=== PATIENT | female | born 1975 | race Caucasian/White ===

== ENCOUNTER 2023-07-07 21:04 | Inpatient (IN) | payer MEDICAID ==
[~2023-07-07] VITALS: Ht 162.6 cm; Wt 102.7 kg
[2023-07-07] MEDS ORDERED: ZOLPIDEM TARTRATE 10 MG TABLET PO PRN (22:30)
[2023-07-07 23:59] VITALS: BP 139/72; PULSE 70; RESP 17; TEMP 97.8; O2SAT 97
[2023-07-08 03:40] VITALS: BP 138/74; RESP 18; O2SAT 97
[2023-07-08] MEDS: LORazepam 2 MG TABLET PO PRN ×3 (03:43→20:24)
[2023-07-08] MEDS: HALOPERIDOL 5 MG TABLET PO PRN ×3 (03:43→20:24)
[2023-07-08] MEDS ORDERED: GLUCAGON,HUMAN RECOMBINANT 1 MG VIAL IM PRN (06:45)
[2023-07-08 06:46] LABS: GLUCOMETER DEV NAME(LOC) BV3S.; GLUCOSE,POINT OF CARE 157 MG/DL (70-110)
[2023-07-08] MEDS: INSULIN LISPRO 100 UNITS/ML SQ PRN ×2 (07:07→16:58)
[2023-07-08] MEDS ORDERED: DiphenhydrAMINE HCL 50 MG/ML VIAL IM ONE ×2 (08:00→16:45)
[2023-07-08] MEDS ORDERED: HALOPERIDOL LACTATE 5 MG/ML VIAL IM ONE ×2 (08:00→16:45)
[2023-07-08] MEDS ORDERED: LORazepam 2 MG/ML VIAL IM ONE ×2 (08:00→16:45)
[2023-07-08 08:12] LABS: CHOL/HDL RATIO 3.1 (3.9-5.7); FREE T4 (FREE THYROXINE) 0.76 ng/dL (0.76-1.46)
[2023-07-08 08:20] LABS: HEMOGLOBIN A1C 6.3 % (3.8-5.6)
[2023-07-08 08:35] VITALS: BP 125/80; PULSE 95; RESP 18; TEMP 97.1; O2SAT 97
[2023-07-08] MEDS: NICOTINE POLACRILEX 2 MG LOZENGE PO PRN ×2 (10:23→20:24)
[2023-07-08 11:36] LABS: GLUCOMETER DEV NAME(LOC) BV3S.; GLUCOSE,POINT OF CARE 107 MG/DL (70-110)
[2023-07-08 16:33] VITALS: BP 125/88; PULSE 96; RESP 17; TEMP 98; O2SAT 98
[2023-07-08 16:46] LABS: GLUCOMETER DEV NAME(LOC) BV3S.; GLUCOSE,POINT OF CARE 149 MG/DL (70-110)
[2023-07-08] MEDS ORDERED: GuaiFENesin/D-METHORPHAN [SUGAR-FREE] 200-20MG/10 ML SYRUP UDCUP PO PRN (19:30)
[2023-07-08] MEDS ORDERED: MAG HYDROX/AL HYDROX/SIMETH ES 30 ML SUSPENSION UDCUP PO PRN (19:30)
[2023-07-08] MEDS ORDERED: DOCUSATE SODIUM 100 MG CAPSULE PO PRN (19:30)
[2023-07-08] MEDS ORDERED: ACETAMINOPHEN 325 MG TABLET PO PRN (19:30)
[2023-07-08] MEDS ORDERED: PETROLATUM,WHITE 28 GM JELLY TP PRN (19:30)
[2023-07-08] MEDS ORDERED: NICOTINE 14 MG/24 HOUR PATCH TD PRN (19:30)
[2023-07-08] MEDS ORDERED: ONDANSETRON HCL 4 MG TABLET PO PRN (19:30)
[2023-07-08] MEDS ORDERED: ALBUTEROL SULFATE HFA 90 MCG/PUFF 8 GM INHALER IH PRN (19:30)
[2023-07-08] MEDS ORDERED: MAGNESIUM HYDROXIDE SUSPENSION 30 ML UDCUP PO PRN (19:30)
[2023-07-08] MEDS ORDERED: CloNIDine HCL 0.1 MG TABLET PO PRN (19:30)
[2023-07-08] MEDS ORDERED: IBUPROFEN 400 MG TABLET PO PRN (19:30)
[2023-07-08] MEDS ORDERED: LOPERAMIDE HCL 2 MG CAPSULE PO PRN (19:30)
[2023-07-08 20:50] LABS: GLUCOMETER DEV NAME(LOC) BV3S.; GLUCOSE,POINT OF CARE 132 MG/DL (70-110)
[2023-07-08 23:25] VITALS: BP 120/68; PULSE 75; RESP 20; TEMP 98; O2SAT 97
[2023-07-09] MEDS: LEVOTHYROXINE SODIUM 50 MCG TABLET PO SCH (06:11)
[2023-07-09 06:46] LABS: GLUCOMETER DEV NAME(LOC) BV3S.; GLUCOSE,POINT OF CARE 128 MG/DL (70-110)
[2023-07-09 07:26] LABS: HEMOGLOBIN A1C 6.1 % (3.8-5.6)
[2023-07-09 07:31] LABS: CHOL/HDL RATIO 3.2 (3.9-5.7)
[2023-07-09 08:28] VITALS: BP 116/73; PULSE 75; RESP 16; TEMP 97.9; O2SAT 96
[2023-07-09] MEDS: LORazepam 2 MG TABLET PO PRN (08:44)
[2023-07-09] MEDS: HALOPERIDOL 5 MG TABLET PO PRN ×2 (08:44→14:59)
[2023-07-09] MEDS: BENZTROPINE MESYLATE 1 MG TABLET PO SCH ×3 (11:17→20:29)
[2023-07-09] MEDS: PROPRANOLOL HCL 10 MG TABLET PO SCH ×2 (11:17→16:26)
[2023-07-09] MEDS: ClonazePAM 1 MG TABLET PO SCH ×3 (11:18→20:31)
[2023-07-09] MEDS: LITHIUM CARBONATE 300 MG CAPSULE PO SCH (11:18)
[2023-07-09] MEDS: DIVALPROEX SODIUM 500 MG DR TABLET PO SCH ×2 (11:18→20:30)
[2023-07-09] MEDS: ChlorproMAZINE HCL 100 MG TABLET PO SCH ×3 (11:18→20:29)
[2023-07-09 11:35] LABS: GLUCOMETER DEV NAME(LOC) BV3S.; GLUCOSE,POINT OF CARE 116 MG/DL (70-110)
[2023-07-09] MEDS: CloZAPine 100 MG TABLET PO SCH ×2 (12:06→20:30)
[2023-07-09] MEDS: NICOTINE POLACRILEX 2 MG LOZENGE PO PRN (14:59)
[2023-07-09 16:25] VITALS: BP 110/64; PULSE 83; RESP 18; TEMP 98; O2SAT 95
[2023-07-09 16:26] LABS: GLUCOMETER DEV NAME(LOC) BV3S.; GLUCOSE,POINT OF CARE 159 MG/DL (70-110)
[2023-07-09] MEDS: LITHIUM CARBONATE 600 MG CAPSULE PO SCH (16:29)
[2023-07-09] MEDS: INSULIN LISPRO 100 UNITS/ML SQ PRN (16:41)
[2023-07-09 20:40] LABS: GLUCOMETER DEV NAME(LOC) BV3S.; GLUCOSE,POINT OF CARE 129 MG/DL (70-110)
[2023-07-09 20:41] VITALS: BP 107/60; PULSE 70; RESP 17; TEMP 97.6; O2SAT 98
[2023-07-10] MEDS: NICOTINE POLACRILEX 2 MG LOZENGE PO PRN ×2 (05:18→14:01)
[2023-07-10] MEDS: HALOPERIDOL 5 MG TABLET PO PRN ×2 (05:19→11:47)
[2023-07-10 06:06] LABS: GLUCOMETER DEV NAME(LOC) BV3S.; GLUCOSE,POINT OF CARE 115 MG/DL (70-110)
[2023-07-10] MEDS: LEVOTHYROXINE SODIUM 50 MCG TABLET PO SCH (06:06)
[2023-07-10 08:19] VITALS: RESP 18
[2023-07-10] MEDS: BENZTROPINE MESYLATE 1 MG TABLET PO SCH ×3 (08:19→20:43)
[2023-07-10] MEDS: ClonazePAM 1 MG TABLET PO SCH ×3 (08:19→20:43)
[2023-07-10] MEDS: DIVALPROEX SODIUM 500 MG DR TABLET PO SCH ×2 (08:20→20:43)
[2023-07-10] MEDS: CloZAPine 100 MG TABLET PO SCH ×2 (08:20→20:43)
[2023-07-10] MEDS: ChlorproMAZINE HCL 100 MG TABLET PO SCH ×3 (08:20→20:43)
[2023-07-10] MEDS: PROPRANOLOL HCL 10 MG TABLET PO SCH ×2 (08:20→16:04)
[2023-07-10] MEDS: LITHIUM CARBONATE 300 MG CAPSULE PO SCH (09:19)
[2023-07-10 11:41] LABS: GLUCOMETER DEV NAME(LOC) BV3S.; GLUCOSE,POINT OF CARE 112 MG/DL (70-110)
[2023-07-10] MEDS: LITHIUM CARBONATE 600 MG CAPSULE PO SCH (16:03)
[2023-07-10 16:31] LABS: GLUCOMETER DEV NAME(LOC) BV3S.; GLUCOSE,POINT OF CARE 153 MG/DL (70-110)
[2023-07-10] MEDS: INSULIN LISPRO 100 UNITS/ML SQ PRN (16:34)
[2023-07-10 22:31] LABS: GLUCOMETER DEV NAME(LOC) BV3S.; GLUCOSE,POINT OF CARE 121 MG/DL (70-110)
[2023-07-11 00:38] VITALS: RESP 18
[2023-07-11] MEDS: NICOTINE POLACRILEX 2 MG LOZENGE PO PRN ×2 (03:15→13:29)
[2023-07-11 06:26] LABS: GLUCOMETER DEV NAME(LOC) BV3S.; GLUCOSE,POINT OF CARE 101 MG/DL (70-110)
[2023-07-11] MEDS: LEVOTHYROXINE SODIUM 50 MCG TABLET PO SCH (06:27)
[2023-07-11] MEDS: HALOPERIDOL 5 MG TABLET PO PRN (08:25)
[2023-07-11] MEDS: ClonazePAM 1 MG TABLET PO SCH ×3 (08:25→22:01)
[2023-07-11] MEDS: LITHIUM CARBONATE 300 MG CAPSULE PO SCH (08:25)
[2023-07-11] MEDS: BENZTROPINE MESYLATE 1 MG TABLET PO SCH ×3 (08:25→22:02)
[2023-07-11] MEDS: ChlorproMAZINE HCL 100 MG TABLET PO SCH ×3 (08:25→22:02)
[2023-07-11] MEDS: DIVALPROEX SODIUM 500 MG DR TABLET PO SCH ×2 (08:25→22:01)
[2023-07-11] MEDS: CloZAPine 100 MG TABLET PO SCH ×2 (08:25→22:01)
[2023-07-11] MEDS: PROPRANOLOL HCL 10 MG TABLET PO SCH ×2 (08:25→17:13)
[2023-07-11 08:44] VITALS: BP 124/75; PULSE 99; RESP 18; TEMP 98; O2SAT 98
[2023-07-11 11:41] LABS: GLUCOMETER DEV NAME(LOC) BV3S.; GLUCOSE,POINT OF CARE 149 MG/DL (70-110)
[2023-07-11] MEDS: INSULIN LISPRO 100 UNITS/ML SQ PRN (11:46)
[2023-07-11] MEDS: LITHIUM CARBONATE 600 MG CAPSULE PO SCH (17:11)
[2023-07-11 17:51] LABS: GLUCOMETER DEV NAME(LOC) BV3S.; GLUCOSE,POINT OF CARE 60 MG/DL (70-110)
[2023-07-11 20:38] VITALS: BP 134/87; PULSE 75; RESP 17; TEMP 97.6; O2SAT 100
[2023-07-11 21:51] LABS: GLUCOMETER DEV NAME(LOC) BV3S.; GLUCOSE,POINT OF CARE 110 MG/DL (70-110)
[2023-07-12 06:01] LABS: GLUCOMETER DEV NAME(LOC) BV3S.; GLUCOSE,POINT OF CARE 134 MG/DL (70-110)
[2023-07-12] MEDS: LEVOTHYROXINE SODIUM 50 MCG TABLET PO SCH (07:15)
[2023-07-12 08:13] VITALS: BP 123/80; PULSE 89; RESP 18; TEMP 97.7; O2SAT 100
[2023-07-12] MEDS: ClonazePAM 1 MG TABLET PO SCH (08:32)
[2023-07-12] MEDS: ChlorproMAZINE HCL 100 MG TABLET PO SCH (08:32)
[2023-07-12] MEDS: LITHIUM CARBONATE 300 MG CAPSULE PO SCH (08:32)
[2023-07-12] MEDS: BENZTROPINE MESYLATE 1 MG TABLET PO SCH (08:32)
[2023-07-12] MEDS: CloZAPine 100 MG TABLET PO SCH (08:32)
[2023-07-12] MEDS: PROPRANOLOL HCL 10 MG TABLET PO SCH (08:33)
[2023-07-12] MEDS: DIVALPROEX SODIUM 500 MG DR TABLET PO SCH (08:33)
[2023-07-12] MEDS: HALOPERIDOL 5 MG TABLET PO PRN (10:46)
[2023-07-12 11:46] LABS: GLUCOMETER DEV NAME(LOC) BV3S.; GLUCOSE,POINT OF CARE 92 MG/DL (70-110)
[2023-07-12] MEDS ORDERED: CLOZ100T61 PO ×2 (13:58→14:04)
[2023-07-12] MEDS ORDERED: DIVA-112 PO ×2 (14:00→14:06)
[2023-07-12] MEDS ORDERED: LITH300C3 PO ×3 (14:01→14:06)
[2023-07-12] MEDS ORDERED: CHLO100T42 PO (14:03)
[2023-07-12] MEDS ORDERED: CLON-595 PO (14:05)
[2023-07-12] MEDS ORDERED: PROP10TA73 PO (14:10)
[2023-07-12] MEDS ORDERED: LEVO175T4 PO (14:11)
[2023-07-13 10:07] LABS: GLUCOMETER DEV NAME(LOC) POC.BV; POC SARS-COV2 AG, FIA NEGATIVE (NEGATIVE)
== END 2023-07-12 14:55 | DRG 750 ==
LOC: B3A 23:20
PROVIDERS: ADMIT Psychiatry & Neurology Psychiatry; ATTEND Psychiatry & Neurology Psychiatry
DX: F25.0 Schizoaffective disorder, bipolar type (principal); E03.9 Hypothyroidism, unspecified; E78.5 Hyperlipidemia, unspecified; F41.9 Anxiety disorder, unspecified; G47.00 Insomnia, unspecified; R73.03 Prediabetes
CPT/HCPCS: 80061; 82962; 83036; 84439; J1200; J1630; J2060; Q9967